=== PATIENT | female | born 1995 | race Caucasian/White ===

== ENCOUNTER 2020-12-29 19:41 | Inpatient (IN) ==
[2020-12-29 18:02] LABS: Basophils % 0.4 %; Eosinophils # 0.1 K/mcL (0.0-0.6); Eosinophils % 0.7 %; Hematocrit 32.4 % (35.3-44.9); Immature Granulocytes % 0.9 % (0-4); Lymphocytes # 1.8 K/mcL (0.6-4.6); Mean Corpuscular Hemoglobin 29.9 pg (28.0-33.3); Mean Platelet Volume 11.6 fL (9.4-12.4); Monocytes # 0.9 K/mcL (0.0-1.3); Monocytes % 9.7 %; Neutrophils # 6.2 K/mcL (1.6-8.9); Platelet Count 194 K/mcL (140-400); Red Blood Count 3.68 M/mcL (3.82-4.97); Red Cell Distribution Width 12.2 % (11.5-14.5); Segmented Neutrophils % 68.3 %
[2020-12-29 18:37] LABS: Protein/Creatinine Ratio,Urine 0.71 mg/mg (0.00-0.20)
[2020-12-29 18:48] LABS: Alanine Aminotransferase 13 Units/L (7-52); Aspartate Amino Transferase 20 Units/L (13-39); BUN/Creatinine Ratio 9 (6-26); Blood Urea Nitrogen 5 mg/dL (6-20); Lactate Dehydrogenase 178 Units/L (140-271); Uric Acid 6.7 mg/dL (2.3-7.6); eGFR For African Americans > 60 (> 60); eGFR For Non-African Americans > 60 (> 60)
[~2020-12-29 19:41] MED LIST: Azithromycin 500 MG in 0.9 % Sodium Chloride 250 ML IVPB PRN; Famotidine 20 MG/2 ML VIAL IVP PRN; Lidocaine 1% 20 ML MDV INFILT PRN; Metoclopramide 10 MG/2 ML VIAL IVP PRN; Naloxone 0.4 MG/ML INJ IVP PRN; Ondansetron 4 MG/2 ML VIAL IVP PRN; Penicillin G Potassium 5,000,000 UNIT in 0.9 % Sodium Chloride Mini Bag 100 ML IVPB ONE
[2020-12-29] MEDS ORDERED: *HR* FentaNYL (PF) 100 MCG/2 ML VIAL EP ONE (19:57)
[2020-12-29] MEDS ORDERED: EPHEDrine 50 MG/ML VIAL IVP PRN (19:57)
[2020-12-29] MEDS ORDERED: Ropivacaine/PF 0.2% 20 ML VIAL EP ONE (19:57)
[2020-12-29] MEDS ORDERED: *HR* FentaNYL (PF) 100 MCG/2 ML VIAL ONE (20:03)
[2020-12-29] MEDS ORDERED: Ropivacaine/PF 0.2% 20 ML VIAL ONE (20:03)
[2020-12-29] MEDS: Ringers Solution, Lactated 1,000 ML IVC SCH (20:53)
[2020-12-30] MEDS ORDERED: miSOPROStoL 25 MCG TABLET PO SCH
[2020-12-30] MEDS: Penicillin G Potassium 2,500,000 UNIT/105 ML MLS IVPB SCH ×2 (01:03→05:36)
[2020-12-30] MEDS: *HR* Nalbuphine 10 MG/ML AMPUL IV PRN ×2 (03:22→07:42)
[2020-12-30] MEDS ORDERED: Oxytocin 20 units/ LR 1000 mL 20 UNIT/1,000 ML BAG IVC ONE (05:29)
[2020-12-30] MEDS: Ringers Solution, Lactated 1,000 ML IVC SCH ×3 (05:36→17:10)
[2020-12-30] MEDS ORDERED: Oxytocin 20 units/ LR 1000 mL 20 UNIT/1,000 ML BAG IVC SCH ×2 (10:15)
[2020-12-30] MEDS: Epidural Premix (fent/bupiv) 110 ML EP SCH ×2 (11:37→17:14)
[2020-12-30] MEDS ORDERED: Ropivacaine/PF 0.2% 20 ML VIAL ONE (20:25)
[2020-12-30] MEDS ORDERED: *HR* FentaNYL (PF) 100 MCG/2 ML VIAL ONE (20:25)
[2020-12-31] MEDS ORDERED: Oxytocin 20 units/ LR 1000 mL 20 UNIT/1,000 ML BAG IVC SCH (00:11)
[2020-12-31] MEDS ORDERED: Oxytocin 20 units/ LR 1000 mL 20 UNIT/1,000 ML BAG IVC ONE (00:11)
[2020-12-31] MEDS ORDERED: Measles/Mumps/Rubella Vacc 0.5 ML VIAL SQ PRN (00:11)
[2020-12-31] MEDS ORDERED: Benzocaine/Menthol 56 GM AEROSOL SPRAY TP PRN (00:11)
[2020-12-31] MEDS ORDERED: Sennosides 8.6 MG TABLET PO PRN (00:11)
[2020-12-31] MEDS ORDERED: Rho Immune Globulin 1,500 UNIT SYRINGE IM PRN (00:11)
[2020-12-31] MEDS: Acetaminophen 325 MG TABLET PO SCH ×4 (01:58→18:15)
[2020-12-31] MEDS: Ibuprofen 600 MG TABLET PO SCH ×4 (01:58→18:15)
[2020-12-31] MEDS: Prenatal Vit/FA 1 EACH TABLET PO SCH (07:38)
[2020-12-31] MEDS ORDERED: NON-FORMULARY MEDICATION 1 EACH EACH (Pnv No.95/Ferrous Fum/Folic Ac [Prenatal Caplet] 1 E PO SCH (09:00)
[2020-12-31] MEDS ORDERED: NIFEdipine XL (24 HR) 30 MG TAB.ER.24 PO SCH ×2 (09:45→10:00)
[2020-12-31] MEDS ORDERED: NIFEdipine XL (24 HR) 30 MG TAB.ER.24 PO ONE (10:00)
[2020-12-31] MEDS: Lanolin 7 G OINT...G. TP PRN (20:35)
[2021-01-01] MEDS: Ibuprofen 600 MG TABLET PO SCH ×4 (00:24→20:16)
[2021-01-01] MEDS: Acetaminophen 325 MG TABLET PO SCH ×4 (00:24→20:16)
[2021-01-01] MEDS: Prenatal Vit/FA 1 EACH TABLET PO SCH (08:49)
[2021-01-01] MEDS ORDERED: NIFEdipine XL (24 HR) 30 MG TAB.ER.24 PO SCH (09:00)
[2021-01-02] MEDS: Acetaminophen 325 MG TABLET PO SCH ×4 (04:02→23:43)
[2021-01-02] MEDS: Ibuprofen 600 MG TABLET PO SCH ×4 (04:03→23:44)
[2021-01-02] MEDS: Prenatal Vit/FA 1 EACH TABLET PO SCH (07:41)
[2021-01-02] MEDS: Lanolin 7 G OINT...G. TP PRN (20:35)
[2021-01-02] MEDS ORDERED: hydrOXYzine pamoate 25 MG CAPSULE PO PRN (23:25)
[2021-01-03] MEDS: Prenatal Vit/FA 1 EACH TABLET PO SCH (07:41)
[2021-01-03] MEDS: Ibuprofen 600 MG TABLET PO SCH (07:45)
[2021-01-03] MEDS: Acetaminophen 325 MG TABLET PO SCH (07:45)
[2021-01-03 08:08] VITALS: BP 152/93
== END 2021-01-03 12:00 | disposition home or self-care (01) | DRG 807 ==
LOC: 1NENULAB → 1NENUOBS 12-31 01:47
PROVIDERS: ADMIT Obstetrics & Gynecology; ATTEND Obstetrics & Gynecology